=== PATIENT | female | born 1995 | race Caucasian/White ===

== ENCOUNTER 2022-10-07 07:54 | Day surgery (SDC) | payer BC ==
[2022-10-07 08:05] LABS: Absolute Lymphocytes (CBC) 1.4 K/uL (0.7-4.9); Hematocrit 39.5 % (36.0-45.0); Lymphocytes % 25.7 % (15.3-44.8); MCV 100.5 fL (80-100); MPV 8.9 fL (7.6-11.3); RBC Red Blood Cell Count 3.93 M/uL (3.86-4.86)
[2022-10-07 08:17] LABS: Potassium 4.4 mmol/L (3.5-5.1)
[2022-10-07] MEDS ORDERED: Ringers Lactate 1,000 ML IV ONE (08:27)
[2022-10-07] MEDS ORDERED: CEFAZOLIN SODIUM 1 GM/VIAL ONE (09:15)
[2022-10-07] MEDS ORDERED: FENTANYL CITR 100 MCG/2 ML ONE (09:17)
[2022-10-07] MEDS ORDERED: ROCURONIUM 50 MG/5 ML VIAL IV ONE (09:17)
[2022-10-07] MEDS ORDERED: LIDOCAINE 2% MPF 5 ML VIAL ONE (09:17)
[2022-10-07] MEDS ORDERED: propofoL 200 MG/20 ML VIAL IV ONE (09:17)
[2022-10-07] MEDS ORDERED: MIDAZOLAM HCL 2 MG/2 ML INJ ONE (09:18)
[2022-10-07] MEDS ORDERED: NS 0.9% VIAL 10 ML ONE (10:07)
[2022-10-07] MEDS ORDERED: dexAMETHasone 10 MG/ML VIAL ONE (10:18)
[2022-10-07] MEDS ORDERED: KETOROLAC 30 MG/ML INJ ONE (10:18)
[2022-10-07] MEDS ORDERED: ONDANSETRON 4 MG/2 ML VIAL ONE (10:19)
[2022-10-07] MEDS ORDERED: GLYCOPYRROLATE 0.2 MG/ML SYR ONE (10:49)
[2022-10-07] MEDS ORDERED: NEOSTIGMINE 1 MG/ML -5 ML ONE (10:49)
--- NOTE | 2022-10-07 10:55 | P.BOP ---
Preoperative diagnosis: tender umbilical hernia Postoperative diagnosis: same Primary procedure: Laparoscopic repair of tender umbilical hernia with mesh Hunting Guide: ALTAF CHAUDHARI (ADVERTISING CONSULTANT) Estimated blood loss: <10cc Specimen: sac Findings: medium ventralex mesh Anesthesia: General Complications: None Transferred to: Recovery Room Condition: Good
[2022-10-07] MEDS: MEPERIDINE HCL 25 MG/ML SYR ONE ×2 (11:05→11:10)
[2022-10-07 12:18] VITALS: TEMP 97.6; O2SAT 100
[2022-10-07 12:19] VITALS: BP 113/87
--- NOTE | 2022-10-07 21:21 | OP ---
Date of Procedure: 10/07/2022 Surgeon: Ken Medina MD Preoperative Diagnosis: Tender umbilical hernia. Postoperative Diagnosis: Tender umbilical hernia. Procedure: Laparoscopic repair of tender umbilical hernia with mesh. Anesthesia: General plus local. Implant: A medium Ventralex mesh. Complications: None. Estimated Blood Loss: Less than 10 cc. Indications: This is a case of a 27-year-old patient who comes to us with periumbilical tenderness, bulge, lump in that region. She has been trying to deal with that, but it is becoming more tender an d more large so she wants that hernia repaired. The benefits, alternatives, and risks of laparoscopi c repair of an umbilical hernia with possible mesh were fully explained, which include, but are not l imited to infection, bleeding, damage to adjacent structures, anesthesia complication, recurrence, GA , and even . She also understands this may not relieve any symptoms and she might need more miriam n one surgical intervention. She also understands the possibility of using mesh in that area and the pros and cons of mesh placement were discussed with the patient and all her questions were answered to her satisfaction. The patient signed a consent. Procedure In Detail: The patient was brought to the operating room and placed in supine position. A nesthesia was done without complication. Abdominal area was prepped and draped in a sterile fashion. Local anesthesia was applied followed by sharp incision of the skin after time-out, on the periumbi lical region. Incision was carried down to fascia and witnessed the umbilical hernia present. Umbil ical sac was opened. Omentum there was reduced back into the abdominal cavity. Hernia sac was remov ed. The fascial edges looked very thin and frayed so I proceeded to place Vicryl #1 inside the fasci a. Lucia trocar was carefully introduced and pneumoperitoneum was obtained. This allowed me to vis ualize the area from inside since most likely we are going to need a mesh due to the quality of the f ascia there. A 5 mm trocar was placed in the left and right abdomen area and that allowed us to put the camera in that region and look at the center. Once again, we noted the area in the middle. We h ave only the umbilical hernia. We selected a Ventralex mesh due to the need to reinforce that area. The Ventralex mesh was placed through the incision in the umbilical area. Lucia trocar was careful ly removed. The Ventralex mesh was placed nice and flat against the abdominal wall with the help of a SorbaFix stay fixation device. The fascial edges were approximated with a #1 Vicryl to the point t hat the area is sealed to air and liquid. Once again, we put the cameras inside there and the mesh l ooked nice and flat circumferentially since we fixated that circumferentially with SorbaFix. Local a nesthetic was applied. The pneumoperitoneum was deflated under direct visualization. Trocars were r emoved and then the subcutaneous tissue closed with 3-0 chromic and skin in a subcuticular fashion wi th 3-0 chromic and Steri-Strips on top. Sponge count and instrument counts were correct. The patien t tolerated the procedure well. The patient was sent to recovery in stable condition. JENNIFER/ANNA Voice ID: [id number] Report ID: [id number]
--- NOTE | 2022-10-07 21:25 | DS ---
Date of Discharge: 10/07/2022 Diagnosis: Tender umbilical hernia. Procedure: Laparoscopic repair of tender umbilical hernia with mesh. Disposition: Home. Activity: As tolerated. No heavy lifting. Follow Up: In my office in 1 week. Call for appointment on [phone]. Discharge Instructions: Keep area dry for 48 hours, then may remove gauze and shower. Abdominal bin james while she is out of bed. JENNIFER/ANNA Voice ID: [id number] Report ID: [id number]
== END 2022-10-07 12:15 | disposition home or self-care (01) ==
LOC: OR 07:54 → EDSEX 10:30 → OR 12:15
PROVIDERS: ATTEND Surgery
PROC: 0WUF4JZ Supplement Abdominal Wall with Synthetic Substitute, Percutaneous Endoscopic Approach (ICD-10-PCS; principal; 2022-10-07 10:30)
DX: K42.9 Umbilical hernia without obstruction or gangrene (principal); J45.909 Unspecified asthma, uncomplicated
CPT/HCPCS: 85025; 80048; 36415; 84703; 88302; 49593; J2704; J2001; J2250; J3010; J1100; J2175; A4216; J2710; J7120; J2405; J0690